=== PATIENT | female | born 1975 | race Caucasian/White ===

== ENCOUNTER 2021-07-01 19:46 | Emergency (ER) | payer OTHER ==
[~2021-07-01] VITALS: Ht 165.1 cm; Wt 81.6 kg
[2021-07-01 20:40] VITALS: BP 138/89
[2021-07-01] MEDS ORDERED: METOCLOPRAMIDE 10 MG TAB PO ONE (21:55)
[2021-07-01] MEDS ORDERED: ACETAMINOPHEN EXTRA STRENGTH 500 MG TAB PO ONE (21:55)
[2021-07-01] MEDS ORDERED: KETOROLAC 60 MG/2 ML VIAL IM ONE (21:55)
[2021-07-01] MEDS ORDERED: IBUP-2213 PO (22:12)
[2021-07-01] MEDS ORDERED: ACET-10509 PO (22:13)
[2021-07-01 23:05] VITALS: BP 124/71
== END 2021-07-01 23:05 | disposition home or self-care (01) ==
LOC: MED 19:46
DX: R51.9 Headache, unspecified (principal); R20.0 Anesthesia of skin; R20.2 Paresthesia of skin; Z79.899 Other long term (current) drug therapy; Z90.710 Acquired absence of both cervix and uterus
CPT/HCPCS: 96372; 99283; J1885; J8597

== ENCOUNTER 2022-01-22 20:14 | Emergency (ER) | payer OTHER ==
[~2022-01-22] VITALS: Ht 167.6 cm; Wt 80.7 kg
[~2022-01-22 20:14] MED LIST: ACET-10509 PO; IBUP-2213 PO
[2022-01-22 20:42] VITALS: BP 151/84
--- NOTE | 2022-01-22 20:49 | NUR ---
TO LOBBY FOLLOWING TRIAGE
--- NOTE | 2022-01-22 21:31 | NUR ---
PT AMBULATED TO BED #7
--- NOTE | 2022-01-22 22:25 | NUR ---
pt quietly sitting at bedside . rt foot elevated
[2022-01-22] MEDS ORDERED: IBUP-2213 PO (22:26)
[2022-01-22 23:37] VITALS: BP 138/70
--- NOTE | 2022-01-22 23:37 | NUR ---
Patient discharged with v/s stable. Written and verbal after care instructions given and explained. Patient alert, oriented and verbalized understanding of instructions. Ambulatory with steady gait. All questions addressed prior to discharge. ID band removed. Patient advised to follow up with PMD. Rx of ibuprofen given. Opportunity to ask questions provided and answered.
--- NOTE | 2022-01-23 00:27 | NUR ---
The patient's care was reviewed and supervised by Leigh Dawson RN.
== END 2022-01-22 23:37 | disposition home or self-care (01) ==
LOC: MED 20:14
DX: S90.121A Contusion of right lesser toe(s) without damage to nail, initial encounter (principal); W22.03XA Walked into furniture, initial encounter; Y93.89 Activity, other specified; Y92.89 Other specified places as the place of occurrence of the external cause; Y99.8 Other external cause status
CPT/HCPCS: 73660; 99283

== ENCOUNTER 2023-11-26 17:36 | Emergency (ER) | payer OTHER ==
[~2023-11-26] VITALS: Ht 162.6 cm; Wt 72.6 kg
[2023-11-26 17:51] VITALS: BP 111/75; PULSE 69; RESP 18; TEMP 97; O2SAT 98
[2023-11-26] MEDS ORDERED: KETOROLAC 30 MG/ML VIAL IM ONE (19:05)
[2023-11-26] MEDS ORDERED: HYDROcodone/APAP 5/325 MG 1 TAB TAB PO ONE (19:05)
[2023-11-26] MEDS ORDERED: NAPR-54 PO (19:40)
[2023-11-26] MEDS ORDERED: ACET-8905 PO (19:40)
== END 2023-11-26 19:47 | disposition home or self-care (01) ==
LOC: MED 17:36
DX: S83.8X1A Sprain of other specified parts of right knee, initial encounter (principal); X58.XXXA Exposure to other specified factors, initial encounter; Y93.89 Activity, other specified; Y92.89 Other specified places as the place of occurrence of the external cause; Y99.8 Other external cause status
CPT/HCPCS: 73562; 96372; 99283; J1885